=== PATIENT | male | born 1980 | race Caucasian/White ===

== ENCOUNTER 2017-05-25 19:56 | Emergency (ER) | payer OTHER ==
[~2017-05-25] VITALS: Ht 188 cm; Wt 123.8 kg
[~2017-05-25 19:56] MED LIST: NOHOMEMEDS; PROzac PO
[2017-05-26] MEDS ORDERED: PREDNISONE10 M1 PO (00:19)
[2017-05-26] MEDS ORDERED: MOTRIN600 MG PO (00:20)
[2017-05-26 00:40] VITALS: BP 131/87
== END 2017-05-26 00:41 | disposition home or self-care (01) ==
LOC: EME 19:56
PROVIDERS: Physician Assistant
DX: J02.8 Acute pharyngitis due to other specified organisms (principal); B97.89 Other viral agents as the cause of diseases classified elsewhere
CPT/HCPCS: 87502; 87651 90; 99281; 99284